=== PATIENT | female | born 1970 | race Caucasian/White ===

== ENCOUNTER 2018-02-22 06:23 | Day surgery (SDC) | payer SELFPAY ==
[2018-02-15 12:41] VITALS: BMI 21.4
[2018-02-22] MEDS ORDERED: HEPARIN NA (PORCINE) 5,000 UNITS/ML 1ML VIAL ONE (06:59)
[2018-02-22] MEDS ORDERED: EPINEPHrine/PF 1 MG/1 ML (1:1,000) AMPULE ONE (08:07)
[2018-02-22] MEDS ORDERED: LIDOCAINE HCL 1% PRESERVATIVE FREE - 30ML VIAL ONE (08:07)
[2018-02-22] MEDS ORDERED: MIDAZOLAM HCL 2 MG/2 ML SINGLE DOSE VIAL ONE (08:23)
[2018-02-22] MEDS ORDERED: fentaNYL CITRATE 250 MCG/5 ML VIAL ONE ×2 (08:24→11:53)
[2018-02-22] MEDS ORDERED: PROPOFOL 20 ML ONE (08:33)
[2018-02-22] MEDS ORDERED: DEXAMETHASONE SOD PHOSPHATE 4 MG/1 ML VIAL ONE (08:34)
[2018-02-22] MEDS ORDERED: ROCURONIUM BROMIDE 50 MG/5 ML VIAL ONE ×4 (08:34→14:28)
[2018-02-22] MEDS ORDERED: ONDANSETRON 4 MG/2 ML VIAL ONE (08:34)
[2018-02-22] MEDS ORDERED: LIDOCAINE HCL 2% JELLY (5 ML/TUBE) ONE (08:35)
[2018-02-22] MEDS ORDERED: SODIUM CHLORIDE 0.9% P/F 10 ML VIAL IJ ONE (08:35)
[2018-02-22] MEDS ORDERED: ceFAZolin SODIUM 1 GM VIAL ONE ×2 (08:35→16:19)
[2018-02-22] MEDS ORDERED: LIDOCAINE HCL/PF 2% SDV 5ML VIAL ONE (08:36)
[2018-02-22] MEDS ORDERED: BUPIVACAINE LIPOSOME/PF (EXPAREL) 266 MG/20 ML VIAL ONE (09:42)
[2018-02-22] MEDS ORDERED: BUPIVACAINE HCL/PF 2.5 MG/ML - 30 ML VIAL IJ ONE (09:43)
[2018-02-22] MEDS ORDERED: HYDROmorphone HCL CARPU-JECT 2 MG/1 ML DISP.SYRIN IVPUSH PRN ×2 (10:43→17:24)
[2018-02-22] MEDS ORDERED: HYDROmorphone HCL/PF 1 MG/ML AMP ONE ×2 (14:29→16:01)
[2018-02-22] MEDS ORDERED: BACITRACIN 15 GM TUBE TOPICAL OINTMENT ONE (15:58)
[2018-02-22] MEDS ORDERED: GLYCOPYRROLATE 0.2 MG/1 ML VIAL ONE (16:20)
[2018-02-22] MEDS ORDERED: NEOSTIGMINE METHYLSULFATE 0.5 MG/ML - 10 ML MDV ONE (16:20)
[2018-02-22] MEDS ORDERED: HYDROmorphone HCL 0.5 MG/0.5 ML SYRINGE ONE ×2 (17:14→17:41)
[2018-02-22] MEDS ORDERED: HYDROmorphone HCL CARPU-JECT 2 MG/1 ML DISP.SYRIN IVPUSH ONE ×2 (17:15→17:40)
[2018-02-22] MEDS ORDERED: ONDANSETRON 4 MG/2 ML VIAL IVPB PRN (17:18)
--- NOTE | 2018-02-22 17:29 | OP ---
Operative Note - Note: Operative Date: 02/22/18 Pre-Operative Diagnosis: Ventral hernia, abdominal and thigh deformities Operation: Ventral hernia repair, revision of abdominoplasty, bilateral medial thigh lifts with liposuction, fat grafting to the left lateral thigh Findings: ventral hernia Post-Operative Diagnosis: Same as Pre-op Surgeon: Tyler Zuluaga Residential Plumber: Garret Uribe Anesthesia: General Specimens Removed: foreign body on abdominal wall Estimated Blood Loss (mls): 200 Drains & Tubes with Location: ELMER to each side of abdomen and each thigh Operative Report Dictated: Yes
[2018-02-22] MEDS ORDERED: LACTATED RINGERS SOLUTION 1,000 ML IV SCH (17:30)
[2018-02-22] MEDS ORDERED: ZOLPIDEM TARTRATE 5 MG TABLET PO PRN (17:38)
[2018-02-22] MEDS ORDERED: METHADONE HCL 10 MG TABLET PO ONE (18:00)
--- NOTE | 2018-02-22 18:55 | OP ---
Operative Note - Note: Operative Date: 02/22/18 Pre-Operative Diagnosis: ventral hernia/ suture draining sinus Operation: ventral hernia repair with mesh Findings: fibrotic scarred rectus muscles and ratty fascia underlying the draining sinus at the skin Implants: BARD ventralex ST 4.5X8.7in Post-Operative Diagnosis: Same as Pre-op Surgeon: Garret Uribe Hazardous Materials Handler: Tyler Zuluaga Anesthesia: General Estimated Blood Loss (mls): 5 Operative Report Dictated: Yes
[2018-02-22] MEDS: CYCLOBENZAPRINE HCL 10 MG TABLET (FP) PO SCH (21:34)
[2018-02-22] MEDS: METHADONE HCL 10 MG TABLET PO SCH (21:34)
[2018-02-22] MEDS: GABAPENTIN 300 MG CAPSULE (FP) PO SCH (21:35)
[2018-02-22] MEDS: TOPIRAMATE 100 MG TABLET PO SCH (21:35)
[2018-02-22] MEDS: HEPARIN NA (PORCINE) 5,000 UNITS/ML 1ML VIAL SQ SCH (21:35)
[2018-02-22] MEDS ORDERED: clonazePAM 0.5 MG TABLET PO PRN (22:00)
[2018-02-22] MEDS ORDERED: GABAPENTIN 300 MG CAPSULE (FP) PO SCH (22:00)
[2018-02-22] MEDS ORDERED: RANITIDINE HCL 150 MG TABLET (FP) PO SCH (22:00)
[2018-02-22] MEDS ORDERED: PATIENT'S OWN MEDICATION (NON-FORMULARY) (Zolpidem Tartrate [Ambien] 10 MG) PO SCH ×2 (22:00)
[2018-02-22] MEDS: HYDROmorphone HCL CARPU-JECT 2 MG/1 ML DISP.SYRIN IVPUSH PRN (23:37)
[2018-02-23] MEDS: HYDROmorphone HCL CARPU-JECT 2 MG/1 ML DISP.SYRIN IVPUSH PRN ×3 (01:20→05:39)
[2018-02-23] MEDS: CEFAZOLIN 1 GM/D5W 1 GM/50 ML BAG IVPB SCH ×2 (02:36→09:56)
[2018-02-23] MEDS ORDERED: PT OWN MED DRAWER 7, Y5N ONE ×2 (05:57→09:04)
[2018-02-23] MEDS: METHADONE HCL 10 MG TABLET PO SCH (06:49)
[2018-02-23] MEDS: CYCLOBENZAPRINE HCL 10 MG TABLET (FP) PO SCH (06:49)
[2018-02-23] MEDS: TOPIRAMATE 100 MG TABLET PO SCH (06:50)
[2018-02-23] MEDS ORDERED: LEVOTHYROXINE NA 100 MCG TABLET (FP) PO SCH (07:00)
--- NOTE | 2018-02-23 08:00 | OP ---
DATE OF OPERATION: 02/22/2018 PREOPERATIVE DIAGNOSIS: Ventral incisional hernia with draining infected midline sinus from previous laparotomy. Patient also has cosmetic deformity secondary to this midline scar with tethering and distortion of the abdomen. She also has loose excess skin in the medial and lateral thighs. TITLE OF PROCEDURE: Revision of abdominoplasty, bilateral medial thigh lift, liposuction to medial thighs and left lateral thigh, with free fat grafting to left lateral thigh. Please note that an additional ventral incisional hernia was repaired by Dr. Garret Uribe. That portion of the procedure to be dictated separately by Dr. Uribe. ATTENDING SURGEON: Tyler Zuluaga MD DESCRIPTION OF PROCEDURE: The patient was marked in the holding area, awake and aware of all incisions and resulting scars. Risks, benefits, and alternatives to the procedure were thoroughly discussed, understood, and patient agreed to proceed. She also understood the limitations of the operation. She was given 5000 units of subcutaneous heparin preoperatively. Sequential compression stockings and STEVE hose were applied preoperatively. She was then brought to the operating room, placed in a supine position. Positioning was carefully checked by surgical and anesthesia teams. All appropriate positional aids were used with padding to the arms, legs, and pillows placed below the knees. Tran catheter was placed preoperatively, which was removed at the end of the operation. At this point, patient was then prepped and draped in standard surgical fashion. A time-out was called. Patient, procedure, side, and sites were verified. An incision was made in the midline. The umbilicus was circumcised and preserved on a deep fibrofatty stalk. The entirety of the midline scar which was tethered and depressed was removed. It was found that there were multiple Ethibond sutures. A large suture granuloma was identified. At this point, the procedure was handed to Dr. Uribe, where decisions regarding the abdominal fascia and foreign body removal were performed. At the completion of Dr. Uribe surgery, I resumed as the surgeon on the case. Lateral elevation of the abdominoplasty flaps were performed to release any tethering points. Lateral perforating blood vessels were identified and preserved. Hemostasis was meticulously achieved. This was connected with a transverse abdominoplasty incision, which previously existed. Excess skin was able to be excised inferiorly to serve as a mons pubis lift. Excess mons pubis fat was excised. The axaff-sb-ubr abdominal incision was then closed after excision of the inferior pannicular skin. This was closed first with a half-buried mattress 2-0 Prolene suture in the midline, inverted T position. Afterwards, skin was tailor tacked with mehdi. The umbilicus positon was identified. An oval defect was made in the abdominoplasty flap where the 2 sides of the midline incision was brought together. The umbilicus was tacked to the abdominal fascia with a 3-0 Vicryl suture, and then to the skin of the oval defect with a series of interrupted buried deep dermal 3-0 Monocryl sutures followed by a running 5-0 nylon suture. This created a nicely depressed umbilicus, which was well vascularized and insets well into the [id number]-bv-[id number] closure. Remainder of the hliyn-ed-dfz closure was performed with over 2 size 10 flat ELMER drains on either side of the incision. The drains were secured with 2-0 silk drain sutures. The Scarpas layer was closed with a series of interrupted 2-0 Vicryl suture. The skin was then closed with a series of interrupted buried deep dermal 3-0 Monocryl sutures followed by a running subcuticular 3-0 Monocryl suture. This was done both on the vertical and transverse limbs. At this point, the patient was repositioned in lithotomy, drapes were removed. Prior to repositioning the patient, patient was then reprepped and draped for a bilateral medial thigh lift with liposuction and fat grafting to the lateral left thigh. After the patient was prepped and draped, the bilateral medial thighs were infiltrated with standard wetting solution, the wetting solution was a liter of lactated Ringers with 1 ampule of 1:100,000 epinephrine and 20 mL of lidocaine 1% plain. While the hemostatic effect of the wetting solution was awaited, the inferior more incision on the medial thighs was then made. Dissection carried down to the level of the Scarpas fascia. On sub-Scarpas plain, inferior undermining was performed to mobilize this skin and soft tissue. Additionally, safe liposuction was performed on the medial thigh with pre- and post-tunneling using a 4-mm basket-tipped cannula to release the ligamentous attachment of the skin followed by liposuction using a 3-mm. Once this liposuction was performed, the fat was preserved using a [employer] fat harvesting system and was transferred into 10-mL syringes and awaited towards the end of the case. Using tailor tacking technique, the skin of the medial thigh was advanced, and it was determined that the full extent of the preoperative pattern was able to be excised, and the superior incision was then made. The mobilized skin flap was secured to the deep fascia of the thigh to prevent skin pulling. This tension-bearing suture was performed with a 0 PDS suture from the Scarpas layer of the skin flap to the deep fascia of the medial thigh. Once this was completed, a size 10 flat ELMER drain was brought out through the anterior extent of the incision. The skin was tailor tacked with mehdi, and a mirror image procedure was then performed on the contralateral left thigh. Once completed, the closure was then performed with a series of interrupted deep dermal 2-0 Vicryl sutures at moore positions. The remainder was performed with a series of interrupted buried deep dermal 3-0 Monocryl suture followed by a combination of running 3-0 Monocryl subcuticular sutures and running 3-0 V-Loc sutures 90 day in the more posterior aspects of the wound. Please note that all liposuction was performed with a 3-mm cannula. Attention was then directed towards the left thigh where a contour deformity was identified laterally. This was also infiltrated with the standard previously mentioned wetting solution. The wetting solution was awaited for full hemostatic effect. At this point, tunneling was performed with the 4-mm basket-tipped cannula to release the tethering portions of the skin. Limited liposuction was performed in the hip superior to the contour deformity. Finally, after post-tunneling was performed using the 4-mm basket-tipped cannula, a fat grafting was performed using the fat previously harvested. A total of 40 mL of fat was injected using a 1.7-mm Curiel-tipped cannula in the subcutaneous plane. All liposuction incisions were closed with 5-0 nylon suture. The skin was closed wherever it was irregular with a series of interrupted 5-0 nylon suture. The patient was dressed with Steri-Strips, ABD gauze. A surgical compression shorts were applied, an abdominal binder was applied. All tissues appeared pink and viable. Drains were placed to bulb suction. The patient was awoken from anesthesia, transferred to recovery without complication. Paulino [id number]
--- NOTE | 2018-02-23 08:12 | PN ---
Progress Note (short form) - Note Progress Note: POD 1 VSS AF NV intact Ambulating, still has not urinated ELMER's thin and functioning, no collections or bleeds OK for discharge once urinates and meets criteria.
[2018-02-23] MEDS: GABAPENTIN 300 MG CAPSULE (FP) PO SCH (09:56)
[2018-02-23] MEDS: HEPARIN NA (PORCINE) 5,000 UNITS/ML 1ML VIAL SQ SCH (09:57)
[2018-02-23] MEDS ORDERED: PATIENT'S OWN MEDICATION (NON-FORMULARY) (Ferrous Sulfate [Ferrous Sulfate] 325 MG) PO SCH (10:00)
[2018-02-23] MEDS ORDERED: CYANOCOBALAMIN 1,000 MCG TABLET (FP) PO SCH (10:00)
[2018-02-23] MEDS ORDERED: PATIENT'S OWN MEDICATION (NON-FORMULARY) (Cyanocobalamin (Vitamin B-12) [Vitamin B12] 5,00 PO SCH (10:00)
[2018-02-23] MEDS ORDERED: FERROUS SO4 325 MG TABLET (FP) PO SCH (10:00)
--- NOTE | 2018-02-23 10:41 | PN ---
Progress Note (short form) - Note Progress Note: 47F POD1 s/p revision of abdominal scar and bilateral thigh lift under GA-ETT. Pt states that pain is relatively well controlled and does not report any anesthetic complications. AVSS. Continue current regimen.
[2018-02-23 12:19] VITALS: BP 130/65; PULSE 99; TEMP 98.2
[2018-02-24 08:06] LABS: HBsAG SCREEN Negative (Negative)
--- NOTE | 2018-02-26 19:46 | PATH ---
Surgical Pathology Report Patient Name: ABDIRIZAK ROCK Med. Rec. #: [id number] /Age/Gender: 1970 (Age: 47) / F Account: [id number] [facility] Taken: 02/22/2018 Received: 02/22/2018 Reported: 02/26/2018 Physicians: Tyler Zuluaga Specimen(s) Received BILATERAL THIGH TISSUE Clinical History Cosmetic and ventral hernia Final Diagnosis ABDOMINAL AND BILATERAL THIGH TISSUE, ABDOMINOPLASTY WITH MEDIAL BILATERAL THIGH LIFT, HERNIA REPAIR, AND LIPOSUCTION: UNREMARKABLE SKIN AND ADIPOSE TISSUE. MACROSCOPIC DIAGNOSIS. Electronically Signed Annalee Callejas M.D. Gross Description Received in formalin labeled "abdominal and bilateral thigh tissue," is a 463 g, 30.0 x 15.0 x 1.5 cm aggregate of multiple sosa, unoriented portions of skin with underlying soft tissue. Sectioning reveals unremarkable yellow, lobulated adipose tissue. No lesions are identified. No sections are submitted, gross only. 02/25/2018 [facility]02/25/2018
== END 2018-02-23 13:43 | disposition home or self-care (01) ==
LOC: FASU 06:23 → FASUSAT 06:23 → FM/S 18:08 → FASUSAT 02-23 13:43
PROVIDERS: ATTEND Plastic Surgery
CPT/HCPCS: 36415; 84460; 84703; 86803; 87340; 87389; 88300-TC; 94760; J1644